=== PATIENT | male | born 1990 | race Caucasian/White ===

== ENCOUNTER 2020-01-18 21:37 | Emergency (ER) | payer SELFPAY ==
[~2020-01-18] VITALS: Ht 177.8 cm; Wt 72.6 kg
[2020-01-18 21:51] VITALS: BP 124/95
--- NOTE | 2020-01-18 21:55 | NUR ---
triaged and waiting in lobby
--- NOTE | 2020-01-18 22:03 | NUR ---
29 year old male coming in for c/o moist productive cough that has been happening for 6 days. states has progressively become worse over the past few days. denies SOB/cough. denies headache/blurry vision. pt is normopneic. crackles on bilat bases. awaiting MSE. pmhx: denies allx: PCN, amoxicillin, iodine
--- NOTE | 2020-01-18 22:04 | NUR ---
Dr. Morgan examining patient.
--- NOTE | 2020-01-18 22:05 | NUR ---
To Ed bed 09
[2020-01-18] MEDS ORDERED: ALBUTEROL SULFATE/IPRATROPIU 3 ML SOL IH ONE ×2 (22:10→22:41)
[2020-01-18] MEDS ORDERED: methylPREDNISolone SS 125 MG/2 ML VIAL IVP ONE (22:10)
--- NOTE | 2020-01-18 22:28 | NUR ---
X-Ray at bedside.
--- NOTE | 2020-01-18 22:30 | NUR ---
RAD AT BEDSIDE.
[2020-01-18 22:34] LABS: BASOPHILS # (AUTO) 0.1 K/uL (0.00-0.22); BASOPHILS % (AUTO) 0.7 % (0.0-2.0); EOSINOPHILS # (AUTO) 0.1 K/uL (0-0.4); EOSINOPHILS % (AUTO) 0.7 % (0.0-4.0); HEMATOCRIT 45.4 % (36-52); LYMPHOCYTES % (AUTO) 26.3 % (20.5-51.1); MEAN CORPUSCULAR HEMOGLOBIN 28 pg (27-31); MEAN CORPUSCULAR HGB CONC 33 g/dL (33-37); MEAN CORPUSCULAR VOLUME 84.4 fL (80-94); MONOCYTES # (AUTO) 1.1 K/uL (0.8-1.0); MONOCYTES % (AUTO) 9.2 % (1.7-9.3); NEUTROPHILS # (AUTO) 7.2 K/uL (1.8-7.7); NEUTROPHILS % (AUTO) 63.1 % (42.2-75.2); PLATELET COUNT (AUTO) 274 K/uL (140-450); RED BLOOD CELL COUNT(AUTO) 5.38 MIL/uL (4.20-6.10); RED CELL DISTRIBUTION WIDTH 14.4 % (11.6-13.7); WHITE BLOOD COUNT (AUTO) 11.4 K/uL (4.8-10.8)
[2020-01-18 23:07] LABS: ANION GAP 18.3 (8-16); CARBON DIOXIDE 26.5 mmol/L (21-32); CREATININE 1.2 mg/dL (0.6-1.3); POTASSIUM 3.8 mmol/L (3.5-5.1)
[2020-01-18 23:13] LABS: ALBUMIN 4.4 g/dL (3.4-5.0)
--- NOTE | 2020-01-18 23:50 | NUR ---
FLU AND ANNAMARIA SWABS TAKEN TO LAB.
[2020-01-19 00:05] VITALS: BP 138/88
--- NOTE | 2020-01-19 00:05 | NUR ---
Patient discharged with v/s stable. Written and verbal after care instructions given and explained. Patient alert, oriented and verbalized understanding of instructions. Ambulatory with steady gait. All questions addressed prior to discharge. ID band removed. Patient advised to follow up with PMD. Rx of prometh with dextromethorphan, zithromax z-nile, albuterol inh, prednisone given. Patient educated on indication of medication including possible reaction and side effects. Opportunity to ask questions provided and answered.
== END 2020-01-19 00:05 | disposition home or self-care (01) ==
LOC: MED 21:37
DX: J20.9 Acute bronchitis, unspecified (principal); Z71.6 Tobacco abuse counseling; Z88.0 Allergy status to penicillin; Z88.1 Allergy status to other antibiotic agents; Z20.828 Contact with and (suspected) exposure to other viral communicable diseases
CPT/HCPCS: 36415; 71045; 80053; 85025; 87426; 87804; 94640; 96374; 99284; J2930; Q0092